=== PATIENT | male | born 1980 | race Caucasian/White ===

== ENCOUNTER 2018-06-27 21:01 | Emergency (ER) | payer BC ==
--- NOTE | 2018-06-27 23:43 | ED ---
Complex/Multi-Sys Presentation - HPI Summary HPI Summary: Pt is a 38 y/o male brought in by EMS who presents to the ED requesting medical clearance. Today he got a bed at a rehabilitation facility. He states that he must be medically cleared before he can be officially accepted, however the physician there went home for the day. Pt is in rehab for use of heroin, cocaine , and alcohol. His last alcohol use was 6 days ago, and his last cocaine use was yesterday. Pt denies any SI or HI. Nurse notes a rash, pt states that he picks at his skin. He is prescribed 900 mg Gabapentin BID. Pt is a smoker. - History Of Current Complaint Chief Complaint: EDGeneral Time Seen by Provider: 06/27/18 23:34 Hx Obtained From: Patient Onset/Duration: Still Present Timing: Constant Severity Currently: None Aggravating Factor(s): Nothing Alleviating Factor(s): Nothing Associated Signs And Symptoms: Positive: Other - Nothing - Allergies/Home Medications Allergies/Adverse Reactions: Allergies Allergy/AdvReac Type Severity Reaction Status Date / Time No Known Allergies Allergy Verified 06/27/18 23:57 Home Medications: Home Medications Gabapentin 06/27/18 [History] traZODone TAB* 06/27/18 [History] PMH/Surg Hx/FS Hx/Imm Hx Neurological History: Reports: Hx Seizures, Other Neuro Impairments/Disorders - TBI Psychiatric History: Reports: Hx Post Traumatic Stress Disorder, Hx Substance Abuse Infectious Disease History: No Infectious Disease History: Denies: Traveled Outside the [place] in Last 30 Days - Family History Known Family History: Negative: Blood Disorder - Social History Alcohol Use: Daily Alcohol Amount: Clean for 6 days Hx Substance Use: Yes Substance Use Type: Reports: Cocaine, Heroin Hx Tobacco Use: Yes Smoking Status (MU): Heavy Every Day Tobacco Smoker Review of Systems Positive: Rash Negative: Other - SI/HI All Other Systems Reviewed And Are Negative: Yes Physical Exam - Summary Physical Exam Summary: VITAL SIGNS: Reviewed. GENERAL: Patient is a well-developed and nourished MALE who is lying comfortable in the stretcher. Patient is not in any acute respiratory distress. HEAD AND FACE: No signs of trauma. No ecchymosis, hematomas or skull depressions. No sinus tenderness. EYES: PERRLA, EOMI x 2, No injected conjunctiva, no nystagmus. EARS: Hearing grossly intact. Ear canals and tympanic membranes are within normal limits. MOUTH: Oropharynx within normal limits. NECK: Supple, trachea is midline, no adenopathy, no JVD, no carotid bruit, no c- spine tenderness, neck with full ROM. CHEST: Symmetric, no tenderness at palpation LUNGS: Clear to auscultation bilaterally. No wheezing or crackles. CVS: Regular rate and rhythm, S1 and S2 present, no murmurs or gallops appreciated. ABDOMEN: Soft, non-tender. No signs of distention. No rebound no guarding, and no masses palpated. Bowel sounds are normal. EXTREMITIES: FROM in all major joints, no edema, no cyanosis or clubbing. NEURO: Alert and oriented x 3. No acute neurological deficits. Speech is normal and follows commands. SKIN: Dry and warm. Generalized multiple superficial skin breaks. Triage Information Reviewed: Yes Vital Signs On Initial Exam: Initial Vitals Temp Pulse Resp BP Pulse Ox 97.1 F 90 16 138/98 98 06/27/18 21:05 06/27/18 21:05 06/27/18 21:05 06/27/18 21:05 06/27/18 21:05 Vital Signs Reviewed: Yes Diagnostics - Vital Signs Vital Signs Temp Pulse Resp BP Pulse Ox 06/27/18 21:05 97.1 F 90 16 138/98 98 - Laboratory Result Diagrams: 06/28/18 00:19 06/28/18 00:19 Lab Statement: Any lab studies that have been ordered have been reviewed, and results considered in the medical decision making process. Complex Multi-Symp Course/Dx Course Of Treatment: Pt is a 38 y/o male brought in by EMS who presents to the ED requesting medical clearance. Pt is in rehab for use of heroin, cocaine, and alcohol. His last alcohol use was 6 days ago, and his last cocaine use was yesterday. A physical exam revealed generalized multiple superficial skin breaks. Bloodwork without any abnormalities. Urine toxicology positive for benzodiazepines, cocaine, and cannabinoids. Pt is medically cleared for drug/ alcohol rehabilitation. In the course he was given nicotine gum. He will be discharged to the rehab facility with a final dx of polysubstance abuse. Pt is agreeable with this plan. - Diagnoses Provider Diagnoses: Polysubstance abuse Discharge - Sign-Out/Discharge Documenting (check all that apply): Patient Departure - Discharge Patient Received Moderate/Deep Sedation with Procedure: No - Discharge Plan Condition: Stable Disposition: HOME Patient Education Materials: Polysubstance Abuse (ED) Referrals: [facility] [Outside] (1-2 days) Additional Instructions: Patient is medically cleared for drug/alcohol rehabilitation. PLEASE RETURN TO THE ED IMMEDIATELY FOR WORSENING OR CONCERNING SYMPTOMS. - Attestation Statements Document Initiated by Scribe: Yes Documenting Scribe: Windy Vargas Provider For Whom Scribe is Documenting (Include Credential): Devin Barger MD Scribe Attestation: IWindy, scribed for Devin Barger MD on 06/28/18 at 0150. Status of Scribe Document: Ready
[2018-06-27] MEDS ORDERED: Nicotine GUM* 2 MG PO PRN (23:47)
[2018-06-27] MEDS ORDERED: Nicotine GUM* 2 MG ONE (23:53)
[2018-06-28 00:26] LABS: ABS Basophils 0.1 10^3/ul (0-0.2); ABS Eosinophils 0.4 10^3/ul (0-0.6); ABS Lymphocytes 4.4 10^3/ul (1.0-4.8); ABS Monocytes 0.8 10^3/ul (0-0.8); ABS Neutrophils 3.3 10^3/ul (1.5-7.7); ABS Nucleated RBC 0 10^3/ul; Eosinophil % 4.2 %; Hematocrit 38 % (36-46); Lymphocyte % 48.8 %; Mean Corpuscular HGB Conc 34 g/dL (31-36); Mean Corpuscular Hemoglobin 31 pg (27-31); Mean Corpuscular Volume 91 fL (80-94); Mean Platelet Volume 8.1 fL (7.4-10.4); Nucleated Red Blood Cells % 0.1; Platelet Count 247 10^3/uL (150-450); Red Blood Count 4.15 10^6 /uL (4.18-5.48); Red Cell Distribution Width 14 % (10.5-15); White Blood Count 8.9 10^3/uL (3.5-10.8)
[2018-06-28 00:44] LABS: ALT 74 U/L (7-52); Albumin 3.8 g/dL (3.2-5.2); Albumin/Globulin Ratio 1.6 (1-3); Alkaline Phosphatase 86 U/L (34-104); Blood Urea Nitrogen 21 mg/dL (6-24); CO2 Carbon Dioxide 29 mmol/L (22-32); Calcium 8.8 mg/dL (8.6-10.3); Chloride 104 mmol/L (101-111); EGFR African American 153.5 (>60); EGFR Non-African American 126.9 (>60); Globulin 2.4 g/dL (2-4); Glucose 109 mg/dL (70-100); Sodium 136 mmol/L (135-145); Total Protein 6.2 g/dL (6.4-8.9)
[2018-06-28 01:17] LABS: Alcohol < 10 mg/dL (<10)
[2018-06-28 01:38] LABS: Barbiturates Urine Screen None Detected (None Detect); Benzodiazepine Urine Screen Presumptive Positive (None Detect); Urine Cannabinoids Screen Presumptive Positive (None Detect)
[2018-06-28 01:57] VITALS: BP 0/0
[2018-06-28 02:18] LABS: AST 62 U/L (13-39); Anion Gap 3 mmol/L (2-11); Potassium 4.7 mmol/L (3.5-5.0)
== END 2018-06-28 01:56 | disposition home or self-care (01) ==
LOC: ED 21:01
DX: F19.10 Other psychoactive substance abuse, uncomplicated (principal); Z72.0 Tobacco use; G40.909 Epilepsy, unspecified, not intractable, without status epilepticus
CPT/HCPCS: 36415; 80053; 80307; 80320; 85025; 99282; A9270-GY; G0480